=== PATIENT | male | born 1945 | race Caucasian/White ===

== ENCOUNTER 2023-10-18 09:51 | Inpatient (IN) | payer MEDICARE, SELFPAY ==
[2023-10-18] VITALS (30 sets, daily range): BP systolic 91–185; BP diastolic 46–164; PULSE 74–95; RESP 14–23; TEMP 36.3–36.9; O2SAT 92–100
--- NOTE | ~2023-10-18 | CT_ITS ---
EXAMINATION: CT cervical spine wo con DATE: 10/18/2023 11:55 INDICATION: Fall. TECHNIQUE: Computed tomography (CT) of the cervical spine was performed without intravenous contrast. Automated exposure control and iterative reconstruction technique were employed. Exam dose: 558.75 mGy-cm total exam DLP. COMPARISON: None FINDINGS: Normal alignment at the atlantoaxial joint space. C1 and C2 are normally aligned and the odontoid process is intact. Chronic concavity of the vertebral endplates of C2-3, C3-4, C4-5, C5-6, C6-7. Very prominent anterior spurring at C5-6. Very prominent hypertrophic degenerative change at the apophyseal joints throughout the cervical spin e. Mild is uncovertebral joint spurring in the mid and lower cervical spine, particularly at C4-5, C5 -6, especially on the left. No fracture or dislocation or locked facet or prevertebral soft tissue swelling. IMPRESSION: Prominent cervical spondylosis; no fracture or dislocation or locked facet Reviewed, dictated and finalized at [facility]. Reviewed, dictated and finalized at location [facility]. IMPRESSION: Prominent cervical spondylosis; no fracture or dislocation or lock ed facet
--- NOTE | ~2023-10-18 | XR_ITS ---
XR hip LT 2V w AP pelvis DATE: 10/18/2023 11:28 INDICATION: Fall. Left hip injury, pain TECHNIQUE: AP pelvis. AP and lateral views of left hip. COMPARISON: None FINDINGS: No pelvic fracture or bone destruction. Normal alignment at the pubic symphysis and sacroil iac joints. Bilateral hip osteoarthritis, moderately severe on the right, moderate on the left. No fracture, dislocation, avascular necrosis or bone destruction of the left hip. Prominent degenerative disc disease at L5-S1 IMPRESSION: Bilateral hip osteoarthritis, right greater than left No pelvic fracture No left hip fracture or dislocation Reviewed, dictated and finalized at [facility].
--- NOTE | ~2023-10-18 | CT_ITS ---
EXAMINATION: CT brain wo con DATE: 10/18/2023 11:54 INDICATION: Fall. TECHNIQUE: Computed tomography (CT) of the head was performed without intravenous contrast. The mA wa s adjusted according to patient size. Iterative reconstruction technique was employed. Exam dose: 60 5.33 mGy-cm total exam DLP. COMPARISON: None FINDINGS: No intracranial mass lesion or hemorrhage or cerebrovascular accident, midline shift or mas s effect is detected. Bilateral carotid siphon internal carotid artery calcifications. There is nonspecific diminished atte nuation of the cerebral white matter, which may be due to chronic small vessel ischemic changes. Mild ly prominent central and cortical cerebral and cerebellar volume loss. No subdural or epidural hematoma is detected. Minimal mucoperiosteal thickening of the right maxillary sinus, patchy soft tissue thickening in the ethmoid air cells and frontal sinuses. Minimal fluid levels in the sphenoid sinuses. The mastoid air cells are well-developed and aerated. No skull fracture or bone destruction is detected. IMPRESSION: No skull fracture or acute intracranial finding Cerebral atherosclerosis and chronic small vessel ischemic changes of the cerebral white matter Reviewed, dictated and finalized at [facility]. Reviewed, dictated and finalized at location [facility]. IMPRESSION: No skull fracture or acute intracranial finding Cerebral atherosclerosis and chronic small vessel ischemic changes of the cereb ral white matter
--- NOTE | ~2023-10-18 | XR_ITS ---
XR elbow RT min 3V DATE: 10/18/2023 11:28 INDICATION: Fall. Right elbow injury, pain TECHNIQUE: 4 views COMPARISON: None FINDINGS: Prominent dorsal olecranon spur. Posterior elbow soft tissue swelling which may be due to h ematoma or olecranon bursitis. No fracture or dislocation, periosteal reaction or bone destruction or joint effusion is evident. IMPRESSION: Posterior soft tissue swelling which may be due to hematoma or olecranon bursitis Prominent dorsal olecranon process spur No fracture, dislocation or joint effusion is detected Reviewed, dictated and finalized at location [facility]. IMPRESSION: Posterior soft tissue swelling which may be due to hematoma or olec ranon bursitis Prominent dorsal olecranon process spur No fracture, dislocation or joint effusion is detected
--- NOTE | ~2023-10-18 | XR_ITS ---
XR elbow LT min 3V DATE: 10/18/2023 11:28 INDICATION: Fall. Left elbow injury, pain TECHNIQUE: 4 views COMPARISON: None FINDINGS: Prominent dorsal olecranon process spur. No fracture or dislocation, periosteal reaction or bone destruction is detected. IMPRESSION: Prominent dorsal olecranon process spur No fracture or dislocation or joint effusion Reviewed, dictated and finalized at location [facility].
--- NOTE | ~2023-10-18 | XR_ITS ---
XR shoulder RT min 2V DATE: 10/18/2023 11:28 INDICATION: Fall. Right shoulder injury, pain TECHNIQUE: 4 views COMPARISON: None FINDINGS: There is osteopenia. Normal alignment at the acromioclavicular and glenohumeral joints. There is chronic rotator cuff atro phy on the right. No fracture, dislocation, periosteal reaction or bone destruction. IMPRESSION: Chronic rotator cuff atrophy of right shoulder No fracture or dislocation of right shoulder Reviewed, dictated and finalized at location A.
--- NOTE | ~2023-10-18 | CT_ITS ---
EXAMINATION: CT chst ab sheldon reyna w DATE: 10/18/2023 11:55 INDICATION: Unwitnessed fall. Patient on the floor for undetermined amount of time. TECHNIQUE: Computed tomography (CT) of the chest, abdomen, and pelvis, thoracic and lumbar spine was performed with 100 CC Omnipaque 350 intravenous contrast. Automated exposure control and iterative re construction technique were employed. Exam dose: 1742.76 mGy-cm total exam DLP. COMPARISON: None FINDINGS: CHEST CT: No thoracic aortic aneurysm or dissection. There is aortic, great vessels and coronary atheroscleroti c calcification. Prominent calcification in the region of the aortic valve. No hilar or mediastinal mass lesion or lymphadenopathy. Cardiomegaly. No pericardial or pleural effusion. 8.7 x 13.5 mm pulmonary density in the lateral aspect of the middle lobe with mild focal surrounding infiltrate. Follow-up CT imaging after 3 months is recommended. There is primarily peripheral mild infiltrate or atelectasis of both lower lobes and lingula. Small sliding hiatal hernia. ABDOMEN/PELVIS CT: No visceral space-occupying mass lesion or laceration of the liver, spleen, pancreas. A couple of sma ll pancreatic tail calcifications suggest chronic pancreatitis. No pancreatic mass lesion or pancreat ic ductal dilatation. Cholelithiasis. No gallbladder wall thickening or pericholecystic fluid or fat stranding. No bile anna t dilatation. Normal morphology of the adrenal glands. Several right renal cysts, the largest approximately 4.2 cm. Indeterminate 8 mm hypoenhancing lesion of the lateral aspect of the mid to lower left kidney with at tenuation of approximately 36 Hounsfield units. Approximately 3 mm nonobstructing lower pole left renal calculus. No other urinary tract calculus or hydroureteronephrosis is detected. Mild prostate enlargement. The urinary bladder is unremarkable. Normal appendix. No bowel obstruction, bowel wall thickening, pneumatosis or intraperitoneal free air . Degenerative disease of the lower cervical spine. 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 Severe degenerative disc disease at L5-S1. No fracture or dislocation of the lower cervical, thoracic or lumbar spine is evident. IMPRESSION: Cardiomegaly 8.7 x 13.5 mm lateral middle lobe pulmonary opacity with mild surrounding focal infiltrate; short-ter m CT follow-up in 3 months is recommended. Primary the peripheral mild infiltrate or atelectasis of both lower lobes and lingula No pneumothorax or pleural effusion Small sliding hiatal hernia No abdominal visceral laceration or space-occupying mass lesion Cholelithiasis Several right renal cysts, measuring up to 4.2 cm Indeterminate 8 mm hypoenhancing lesion in the lateral mid to lower left kidney with attenuation of 3 6 Hounsfield units 3 mm nonobstructing lower pole left renal calculus Normal appendix Mild prostate enlargement No thoracic or lumbar spine fracture is detected Severe degenerative disease at L5-S1 Diffuse idiopathic skeletal hyperostosis of the thoracic spine Reviewed, dictated and finalized at [facility]. Reviewed, dictated and finalized at location A. IMPRESSION: Cardiomegaly 8.7 x 13.5 mm lateral middle lobe pulmonary opacity with mild surrounding focal infiltrate; short-term CT follow-up in 3 months is recommended. Primary the peripheral mild infiltrate or atelectasis of both lower lobes and l ingula No pneumothorax or pleural effusion Small sliding hiatal hernia No abdominal visceral laceration or space-occupying mass lesion Cholelithiasis Several right renal cysts, measuring up to 4.2 cm Indeterminate 8 mm hypoenhancing lesion in the lateral mid to lower left kidney with attenuation of 36 Hounsfield units 3 mm nonobstructing lower
--- NOTE | 2023-10-18 10:02 | ECG_ITS ---
[facility] [address] Test Date: 2023-10-18 Pat Name: Ken Donovan Department: Room: Gender: M Technical Training Coordinator: : 1945 Requested By: Kamari Christianson Order Number: [id number] Sven MD: Nik Trevizo M.D. Measurements Intervals [place] Rate: 84 P: 64 FL: 187 QRS: -48 QRSD: 75 T: 12 QT: 356 QTc: 421 Interpretive Statements SINUS RHYTHM LEFT ANTERIOR SUPERIOR HEMIBLOCK ABNORMAL ECG No previous ECG available for comparison Electronically Signed On 10-19-2023 07:42:34 CDT by Nik Trevizo M.D.
--- NOTE | 2023-10-18 10:05 | ED.FALL ---
HPI - Fall General Chief Complaint: Fall Stated Complaint: fall Time Seen by Provider: 10/18/23 10:00 History of Present Illness HPI Narrative: Patient is a 77 year old male with history of sleep apnea, RA, HLD, DM, HTN here after a fall. Patient states that he was making chili, he believes this was on Friday evening and he tripped over camp on the floor and fell down to the ground and hit his head. He states he thinks he was on the ground since that time on Friday. He notes that he was unable to get off of the ground because it was wet. He has not had anything to eat or drink since he fell which he assumes was on Friday. He lives alone and has family that lives out of state. They were unable to get a hold of him and called for a welfare check and he was found down on the ground by police and EMS. He was reportedly covered in his own feces at home. He notes he has never been hospitalized and describes himself as quite healthy. He currently denies any pain. Related Data Home Medications Medication Instructions Recorded Confirmed folic acid 1 mg tablet 1 mg PO DAILY 09/15/19 10/18/23 methotrexate sodium 2.5 mg tablet 2.5 mg PO WEEKLY 09/15/19 10/18/23 glipizide 10 mg tablet 10 mg PO BID 10/18/23 10/18/23 simvastatin 40 mg tablet 40 mg PO DAILY 10/18/23 10/18/23 Allergies Allergy/AdvReac Type Severity Reaction Status Date / Time No Known Allergies Allergy Verified 10/18/23 18:02 Review of Systems Review of Systems: All systems reviewed & are unremarkable except as noted in HPI and below PMFSH Past Medical History Medical History Arthritis, rheumatoid Combined hyperlipidemia Diabetes type 2, controlled Hypertension REGAN (obstructive sleep apnea) Skin cancer, basal cell Family History Family History Father Family history of malignant neoplasm, Onset Age: 61 Mother Family history of Parkinson's disease, Onset Age: 88 Social History Social History Smoking status: Never smoker Second hand tobacco smoke exposure: No Alcohol intake: never Substance use: never Do You Feel Safe in your Home?: Yes Lack of Transportation: No Lack of Food: Never True Current Housing: I Have Housing Concerned About Future Housing: No Difficulty Paying Gas/Electric Bills: No Difficulty Paying for Meds: No Currently Unemployed: No Education: Decline to Answer Difficulty w/ Childcare or Family Care: No Spiritual care concerns: No Exam Narrative: GENERAL: Well-appearing, well-nourished, and in no acute distress. HEAD: Normocephalic, atraumatic. EYES: PERRLA and EOMI. ENT: Nares clear. Mucous membranes dry NECK: Supple. CHEST: Clear to auscultation. No respiratory distress. No chest wall tenderness. HEART: Regular rate and rhythm. Normal peripheral pulses. ABDOMEN: Soft, nontender, nondistended. EXTREMITIES: Bilateral hips non-tender with normal ROM. No midline thoracic or lumbar tenderness. Bruising and erythema present over the right scapula with minimal underlying tenderness. Erythema present over the left elbow with normal ROM and no tenderness. 2x2 cm of ulceration present to posterior right elbow consistent with pressure ulcer, normal ROM. Normal distal sensation, strength and perfusion. SKIN: Warm, dry, no rash. Erythema present diffusely over BL gluteal region without skin breakdown. NEURO: No focal deficits. Alert and oriented x3. PSYCH: Normal mood and affect. Course Course Emergency Course: Chart review performed. Patient here after being found on the floor during wellness check. Triage vitals normal. Last PCP note in our system from 2019 reviewed. History of REGAN, HLD, HTN, T2DM, RA taking methotrexate at that time. Patient seen evaluated, nontoxic appearing. He is awake, alert, oriented.
[2023-10-18] MEDS: LACTATED RINGERS 1,000 ML 999 ML IV CONT ×2 (10:24→11:09)
[2023-10-18 10:32] LABS: Basophils Absolute Auto 0.1 K/mm3 (0.0-0.1); Basophils Percent Auto 0.5 % (0.2-1.2); Eosinophils Percent Auto 0.1 % (0-4.4); Hematocrit 49.6 % (42.0-52.0); Hemoglobin 16.4 g/dL (14.0-18.0); Immature Granulocyte Absolute 0.11 K/mm3 (0.00-0.031); Immature Granulocyte Percent A 0.7 % (0-0.5); Lymphocytes Absolute Auto 1.67 K/mm3 (0.9-3.2); Lymphocytes Percent Auto 11.2 % (18.3-44.2); Mean Corpuscular HGB Conc 33.1 g/dl (32-36); Mean Corpuscular Hemoglobin 29.3 pg (26-34); Mean Corpuscular Volume 88.7 fl (80-100); Mean Platelet Volume 11.1 fl (7.4-10.4); Monocytes Absolute Auto 1.4 K/mm3 (0.1-0.6); Monocytes Percent Auto 9.2 % (2.6-8.5); Neutrophils Absolute Auto 11.7 K/mm3 (1.3-6.7); Neutrophils Percent Auto 78.3 % (45.5-73.1); Platelet Count Result 239 k/mm3 (150-375); Red Blood Count 5.59 M/mm3 (4.6-6.20); Red Cell Distribution Width 13.2 % (11.5-14.5); White Blood Count 14.9 K/mm3 (4.5-10.0)
[2023-10-18 10:48] LABS: INR 1.1; Prothrombin Time 14.7 Seconds (11.1-14.7)
[2023-10-18 10:49] LABS: Partial Thromboplastin Time 30.4 Seconds (22.3-36.8)
[2023-10-18 10:56] LABS: Troponin I 0.025 ng/mL (0.000-0.034)
[2023-10-18 11:03] LABS: Alanine Aminotransferase 38 U/L (6-50); Albumin Level 4.4 g/dL (3.5-5.1); Alkaline Phosphatase 77 U/L (38-126); Anion Gap 8 mmol/L (4-12); Aspartate Amino Transferase 88 U/L (17-59); Bilirubin,Total 1.9 mg/dL (0.2-1.3); Blood Urea Nitrogen 29 mg/dL (9-20); CRP 14.2 mg/dL (<1.0); Calcium 9.7 mg/dL (8.4-10.2); Carbon Dioxide 27 mmol/L (22-30); Chloride 100 mmol/L (98-107); Creatine Kinase 2163 U/L (55-170); Estimated CRCL calculation 99 ml/min; Estimated Glomerular Filt Rate > 60; Glucose 305 mg/dL (65-110); Magnesium 2.1 mg/dL (1.6-2.3); Potassium 4.5 mmol/L (3.4-5.0); Sodium 135 mmol/L (137-145)
--- NOTE | 2023-10-18 12:25 | PC.NURSE ---
Pt not able to urinate, tried many times.
[2023-10-18 12:34] LABS: Appearance Urine Clear (Clear); Bacteria Urine None Seen /hpf; Bilirubin Urine Negative (Negative); Blood Urine 2+ (Negative); Color Urine Dark Yellow (Yellow); Glucose Urine UA 3+ mg/dL (Negative); Ketones Urine 1+ mg/dL (Negative); Leukocyte Esterase Ur Negative LEU/UL (Negative); Nitrate Urine Negative (Negative); Protein Urine 1+ mg/dL (Negative); RBC Urine 51-100 /hpf (0-2); Squamous Epithelial Cell Urine None Seen /hpf (Few); WBC Urine 0-5 /hpf (0-3); pH Urine 5.5 (5.0-9.0)
[2023-10-18 12:37] LABS: Add Urine Microscopic? YES; Specific Grav Ur 1.055 (1.001-1.035)
[2023-10-18 13:28] LABS: Reflex Lactic Acid Yes or No Add Lactic
[2023-10-18 14:19] LABS: Lactic Acid 2.2 mmol/L (0.7-2.0)
[2023-10-18] MEDS: DOXYCYCLINE 100 MG/NS 100 ML 100 MG/100 ML BAG IVPB (14:30)
[2023-10-18] MEDS: TETANUS,DIPHTHERIA,AC PERTUSSIS ADULT (0.5 ML) BOOSTRIX IM (14:35)
--- NOTE | 2023-10-18 15:01 | PM.IMHP ---
H&P: HPI History of Present Illness Date/Time: 10/18/23 15:01 Chief Complaint: Fall, Wellness Check Narrative: 77 y/o M presents here for further evaluation after ground level fall with PMH of HTN, DM, HLD, rheumatoid arthritis, and sleep apnea. The patient presents here via EMS from home for further evaluation after ground level fall. Patient's sister who lives in [place] typically speaks with the patient daily, last spoke with the patient on Friday, and had not heard from him since. She called a wellness check and upon PD arrival, patient was found on the floor. He is unsure when he fell, but was unable to get up due to the floor being slick. States he was about to make chili Friday evening and this is the last thing he remembers doing before the fall, remembers tripping over a case of food on the floor. Believes it wither tripped him or he lost his balance avoiding it and fell to the ground. Endorsing hitting his head, reports the strike was mild and more like a graze. Denies LOC. Reports 1 fall (the one that occurred Fri) in the last 3 months and does not use an assistive device. Patient arrived covered in dried urine and feces. Denies any current ETOH use. No nausea or vomiting during down time on floor, did have N/V earlier that day. Believes he developed food poisoning after eating out at lunch after attending a . Denies choking or difficulty breathing after the N/V. No prior hx of smoking. Patient used to work in sales, [place]. Initial VS at presentation: 98.4? F, HR 86, RR 17, 138/81, and 100% on RA. ED workup showed: WBC 14.9, sodium 135, creatinine 0.7 and normal GFR, glucose 305, lactic 3.0, total bilirubin 1.9, AST 88, CK 2163, initial troponin 0.025, and CRP 14.2. UA not consistent with UTI. Trauma workup largely unremarkable. CT did show a lateral middle lobe pulmonary opacity with surrounding with focal infiltrate. Review of Systems Review of Systems: All systems reviewed & are unremarkable except as noted in HPI and below PMFSH Past Medical History Medical History Arthritis, rheumatoid Combined hyperlipidemia Diabetes type 2, controlled Hypertension REGAN (obstructive sleep apnea) Skin cancer, basal cell Family History Family History Father Family history of malignant neoplasm, Onset Age: 61 Mother Family history of Parkinson's disease, Onset Age: 88 Social History Social History Smoking status: Never smoker Second hand tobacco smoke exposure: No Alcohol intake: never Substance use: never Do You Feel Safe in your Home?: Yes Lack of Transportation: No Lack of Food: Never True Current Housing: I Have Housing Concerned About Future Housing: No Difficulty Paying Gas/Electric Bills: No Difficulty Paying for Meds: No Currently Unemployed: No Education: Decline to Answer Difficulty w/ Childcare or Family Care: No Spiritual care concerns: No Meds Home Medications and Allergies Home Medications Medication Instructions Recorded Confirmed Type losartan 25 mg tablet 50 mg PO DAILY #120 tabs 04/14/19 10/18/23 Rx folic acid 1 mg tablet 1 mg PO DAILY 09/15/19 10/18/23 History methotrexate sodium 2.5 mg tablet 2.5 mg PO WEEKLY 09/15/19 10/18/23 History glipizide 10 mg tablet 10 mg PO BID 10/18/23 10/18/23 History simvastatin 40 mg tablet 40 mg PO DAILY 10/18/23 10/18/23 History Allergies Allergy/AdvReac Type Severity Reaction Status Date / Time No Known Allergies Allergy Verified 10/18/23 18:02 Vital Signs Vital Signs - 24 hr 10/18/23 09:51 10/18/23 10:04 10/18/23 10:15 Temperature 98.4 F Pulse Rate 86 88 89 Respiratory Rate 17 19 20 Blood Pressure 138/81 154/79 H Pulse Oximetry 100 98 99 Oxygen Delivery Room Air 06
--- NOTE | 2023-10-18 16:07 | PC.NURSE ---
This patient, Ken Donovan, was admitted to 3 [facility] Surg Room 317-01 at 1545. Patient/family oriented to hospital policies and general routines including ID bracelet, bed and alarms, visiting hours, pain management, procedures, bathroom and other care routines, personal items, smoking policy, room service/diet, and visiting hours. Information on how to activate the Rapid Response Team has been discussed. Patient/Family are encouraged to report perceived risks to care and to ask questions if they do not understand what they are told or what they should do.
[2023-10-18] MEDS: LACTATED RINGERS 1,000 ML 100 ML IV CONT (16:16)
--- NOTE | 2023-10-18 16:19 | PCRCNOTE ---
Received order for Bipap/Cpap with home settings. Spoke with Pt. whom refused offer to use one of our machines. R.N. at bedside and states Pt. has a home unit but does not use it. No unit left in the room at this time.
[2023-10-18 16:23] LABS: Glucose Point of Care 301 mg/dl (65-105)
[2023-10-18] MEDS: INSULIN ASPART (*BKC) 100 UNITS/ML SUB-Q (16:40)
[2023-10-18 20:11] LABS: Glucose Point of Care 252 mg/dl (65-105)
[2023-10-19] MEDS: LACTATED RINGERS 1,000 ML 100 ML IV CONT ×2 (02:35→17:26)
[2023-10-19 04:41] VITALS: BP 137/63; PULSE 77; RESP 16; TEMP 36.6; O2SAT 98
[2023-10-19 06:17] LABS: Basophils Absolute Auto 0.1 K/mm3 (0.0-0.1); Basophils Percent Auto 0.7 % (0.2-1.2); Eosinophils Absolute Auto 0.2 K/mm3 (0-0.3); Eosinophils Percent Auto 1.9 % (0-4.4); Hemoglobin 13.4 g/dL (14.0-18.0); Immature Granulocyte Absolute 0.06 K/mm3 (0.00-0.031); Immature Granulocyte Percent A 0.7 % (0-0.5); Lymphocytes Absolute Auto 1.94 K/mm3 (0.9-3.2); Lymphocytes Percent Auto 21.5 % (18.3-44.2); Mean Corpuscular HGB Conc 32.7 g/dl (32-36); Mean Corpuscular Hemoglobin 29.4 pg (26-34); Mean Corpuscular Volume 89.9 fl (80-100); Mean Platelet Volume 10.7 fl (7.4-10.4); Monocytes Percent Auto 10.6 % (2.6-8.5); Neutrophils Absolute Auto 5.8 K/mm3 (1.3-6.7); Neutrophils Percent Auto 64.6 % (45.5-73.1); Platelet Count Result 175 k/mm3 (150-375); Red Blood Count 4.56 M/mm3 (4.6-6.20); Red Cell Distribution Width 13.2 % (11.5-14.5)
[2023-10-19 06:41] LABS: Alanine Aminotransferase 34 U/L (6-50); Albumin Level 3.2 g/dL (3.5-5.1); Alkaline Phosphatase 62 U/L (38-126); Anion Gap 4 mmol/L (4-12); Aspartate Amino Transferase 74 U/L (17-59); Bilirubin,Total 1.2 mg/dL (0.2-1.3); Blood Urea Nitrogen 22 mg/dL (9-20); Calcium 8.8 mg/dL (8.4-10.2); Carbon Dioxide 26 mmol/L (22-30); Chloride 103 mmol/L (98-107); Estimated CRCL calculation 99 ml/min; Estimated Glomerular Filt Rate > 60; Glucose 209 mg/dL (65-110); Potassium 3.8 mmol/L (3.4-5.0); Sodium 133 mmol/L (137-145)
[2023-10-19 07:00] LABS: Creatine Kinase 1256 U/L (55-170)
[2023-10-19 07:58] LABS: Glucose Point of Care 198 mg/dl (65-105)
[2023-10-19] MEDS: SIMVASTATIN 20 MG TABLET 40 MG PO (08:55)
[2023-10-19] MEDS: FOLIC ACID 1 MG TABLET PO (08:57)
[2023-10-19] MEDS: LOSARTAN POTASSIUM 25 MG TABLET 50 MG PO (08:57)
[2023-10-19] MEDS: glipiZIDE 5 MG TABLET 10 MG PO ×2 (08:57→16:41)
[2023-10-19 09:42] LABS: Hemoglobin A1C 8.6 % (<5.7)
--- NOTE | 2023-10-19 11:08 | PM.IMPN ---
Progress Note: A&P Assessment and Plan (1) Ground-level fall: Code(s): W18.30XA - Fall on same level, unspecified, initial encounter Status: Acute Assessment and Plan: - 1 fall in the last 3 months - fall precautions - trauma workup XR shoulder (R): no fracture or dislocation, chronic rotator cuff atrophy XR elbow (R): Posterior soft tissue swelling, prominent dorsal olecranon process spur, no fracture/dislocation/effusion XR elbow (L): Prominent dorsal olecranon process spur, no fracture/dislocation/effusion XR hip/pelvis: Bilateral hip osteoarthritis, no fracture, no dislocation CT head: Chronic findings, no fracture or acute intracranial bleed CT C-spine: Prominent cervical spondylosis, no fracture or dislocation CT chest/abd/pelvis: Cardiomegaly 8.7 x 13.5 mm lateral middle lobe pulmonary opacity with mild surrounding focal infiltrate; rec CT follow-up in 3 months. Primary the peripheral mild infiltrate or atelectasis of both lower lobes and lingula No pneumothorax or pleural effusion Small sliding hiatal hernia No abdominal visceral laceration or space-occupying mass lesion Cholelithiasis Several right renal cysts, measuring up to 4.2 cm Indeterminate 8 mm hypoenhancing lesion in the lateral mid to lower left kidney with attenuation of 36 Hounsfield units 3 mm nonobstructing lower pole left renal calculus Normal appendix Mild prostate enlargement No thoracic or lumbar spine fracture is detected Severe degenerative disease at L5-S1 Diffuse idiopathic skeletal hyperostosis of the thoracic spine - PT/OT eval and treat - patient feels safe at home and has had no prior issues with falls/mobility (2) Pneumonia: Qualifiers: Laterality: bilateral Lung location: lower lobe of lung Pneumonia type: due to unspecified organism Qualified Code(s): J18.9 - Pneumonia, unspecified organism Code(s): J18.9 - Pneumonia, unspecified organism Status: Acute Assessment and Plan: - CT chest/abd/pelvis: 8.7 x 13.5 mm pulmonary density in the lateral aspect of the middle lobe with mild focal surrounding infiltrate. Follow-up CT imaging after 3 months is recommended. There is primarily peripheral mild infiltrate or atelectasis of both lower lobes and lingula - started on CAP tx: ceftriaxone and doxycycline on 10/17 - sputum culture - denied N/V during period spent on floor - no supplemental O2 requirement - patient informed of CT findings and need for follow-up scan in 3 months, remind at discharge (3) Rhabdomyolysis: Qualifiers: Rhabdomyolysis type: non-traumatic Qualified Code(s): M62.82 - Rhabdomyolysis Code(s): M62.82 - Rhabdomyolysis Status: Acute Assessment and Plan: - CK 2163 - trend CK and renal function - IV fluids: 2L LR, continue as 100 mL/hr. CK down to 1200. will lower ivf - monitor I&Os - suspect elevation due to prolonged down time on the floor after GLF (4) Diabetes type 2, controlled: Qualifiers: Diabetes mellitus terminal gauger supervisor insulin use: without terminal gauger supervisor use Diabetes mellitus complication status: without complication Qualified Code(s): E11.9 - Type 2 diabetes mellitus without complications Code(s): E11.9 - Type 2 diabetes mellitus without complications Status: Chronic Assessment and Plan: - hypoglycemia protocol - POC blood glucose ACHS - home medication: Continue glipizide - correct regimen ordered - low dose TIDWM and HS - A1C o8.6 (5) Hypertension: Qualifiers: Hypertension type: primary hypertension Qualified Code(s): I10 - Essential (primary) hypertension Code(s): I10 - Essential (primary) hypertension Status: Chronic Assessment and Plan: - chronic, currently 139/56 - continue home medications: Losartan 50 mg daily - monitor (6) Sleep apnea: Qualifiers: Sleep apnea type: obstructive Qualified Code(s)
[2023-10-19 11:26] LABS: Glucose Point of Care 216 mg/dl (65-105)
[2023-10-19] MEDS: INSULIN ASPART (*BKC) 100 UNITS/ML SUB-Q (11:56)
[2023-10-19 14:00] VITALS: BP 142/54; PULSE 84; RESP 16; TEMP 36.5; O2SAT 99
[2023-10-19 16:30] LABS: Glucose Point of Care 119 mg/dl (65-105)
[2023-10-19 19:58] VITALS: BP 140/69; PULSE 91; RESP 18; TEMP 37.1; O2SAT 97
[2023-10-19 20:12] LABS: Glucose Point of Care 193 mg/dl (65-105)
[2023-10-20 04:35] VITALS: BP 163/75; PULSE 76; RESP 16; TEMP 36.6; O2SAT 99
[2023-10-20 06:37] LABS: Basophils Absolute Auto 0.1 K/mm3 (0.0-0.1); Basophils Percent Auto 0.8 % (0.2-1.2); Eosinophils Absolute Auto 0.1 K/mm3 (0-0.3); Eosinophils Percent Auto 2.3 % (0-4.4); Hematocrit 40.9 % (42.0-52.0); Hemoglobin 13.3 g/dL (14.0-18.0); Immature Granulocyte Absolute 0.07 K/mm3 (0.00-0.031); Immature Granulocyte Percent A 1.2 % (0-0.5); Lymphocytes Absolute Auto 1.39 K/mm3 (0.9-3.2); Lymphocytes Percent Auto 23.2 % (18.3-44.2); Mean Corpuscular HGB Conc 32.5 g/dl (32-36); Mean Corpuscular Hemoglobin 29.3 pg (26-34); Mean Corpuscular Volume 90.1 fl (80-100); Mean Platelet Volume 10.8 fl (7.4-10.4); Monocytes Absolute Auto 0.7 K/mm3 (0.1-0.6); Monocytes Percent Auto 11.3 % (2.6-8.5); Neutrophils Absolute Auto 3.7 K/mm3 (1.3-6.7); Neutrophils Percent Auto 61.2 % (45.5-73.1); Platelet Count Result 174 k/mm3 (150-375); Red Blood Count 4.54 M/mm3 (4.6-6.20); Red Cell Distribution Width 13.1 % (11.5-14.5)
[2023-10-20 06:56] LABS: Alanine Aminotransferase 37 U/L (6-50); Albumin Level 3.2 g/dL (3.5-5.1); Alkaline Phosphatase 63 U/L (38-126); Anion Gap 4 mmol/L (4-12); Aspartate Amino Transferase 75 U/L (17-59); Bilirubin,Total 0.9 mg/dL (0.2-1.3); Blood Urea Nitrogen 14 mg/dL (9-20); Calcium 8.8 mg/dL (8.4-10.2); Carbon Dioxide 26 mmol/L (22-30); Chloride 105 mmol/L (98-107); Creatine Kinase 1028 U/L (55-170); Estimated CRCL calculation 87 ml/min; Estimated Glomerular Filt Rate > 60; Glucose 196 mg/dL (65-110); Magnesium 1.9 mg/dL (1.6-2.3); Potassium 3.8 mmol/L (3.4-5.0); Sodium 135 mmol/L (137-145)
[2023-10-20 08:00] VITALS: PULSE 76; RESP 16; O2SAT 99
[2023-10-20 08:11] LABS: Glucose Point of Care 190 mg/dl (65-105)
[2023-10-20] MEDS: LACTATED RINGERS 1,000 ML 100 ML IV CONT (09:30)
[2023-10-20] MEDS: SIMVASTATIN 20 MG TABLET 40 MG PO (09:31)
[2023-10-20] MEDS: LOSARTAN POTASSIUM 25 MG TABLET 50 MG PO (09:31)
[2023-10-20] MEDS: FOLIC ACID 1 MG TABLET PO (09:31)
[2023-10-20] MEDS: glipiZIDE 5 MG TABLET 10 MG PO ×2 (09:31→17:42)
[2023-10-20] MEDS: DOXYCYCLINE 100 MG/NS 100 ML 100 MG/100 ML BAG IVPB ×3 (09:32→20:42)
[2023-10-20 11:43] LABS: Glucose Point of Care 183 mg/dl (65-105)
--- NOTE | 2023-10-20 12:00 | PM.IMPN ---
Progress Note: A&P Assessment and Plan (1) Ground-level fall: Code(s): W18.30XA - Fall on same level, unspecified, initial encounter Status: Acute Assessment and Plan: - 1 fall in the last 3 months - fall precautions - trauma workup XR shoulder (R): no fracture or dislocation, chronic rotator cuff atrophy XR elbow (R): Posterior soft tissue swelling, prominent dorsal olecranon process spur, no fracture/dislocation/effusion XR elbow (L): Prominent dorsal olecranon process spur, no fracture/dislocation/effusion XR hip/pelvis: Bilateral hip osteoarthritis, no fracture, no dislocation CT head: Chronic findings, no fracture or acute intracranial bleed CT C-spine: Prominent cervical spondylosis, no fracture or dislocation CT chest/abd/pelvis: Cardiomegaly 8.7 x 13.5 mm lateral middle lobe pulmonary opacity with mild surrounding focal infiltrate; rec CT follow-up in 3 months. 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 Follow-up CT imaging after 3 months is recommended. There is primarily peripheral mild infiltrate or atelectasis of both lower lobes and lingula - started on CAP tx: ceftriaxone and doxycycline on 10/17 - sputum culture - denied N/V during period spent on floor - no supplemental O2 requirement - patient informed of CT findings and need for follow-up scan in 3 months, remind at discharge (3) Rhabdomyolysis: Qualifiers: Rhabdomyolysis type: non-traumatic Qualified Code(s): M62.82 - Rhabdomyolysis Code(s): M62.82 - Rhabdomyolysis Status: Acute Assessment and Plan: - CK 2163 - trend CK and renal function - IV fluids: 2L LR, continue as 100 mL/hr. CK down to 1200. Lowered IV fluid if adequate oral intake. IV fluids today. - monitor I&Os - suspect elevation due to prolonged down time on the floor after GLF (4) Diabetes type 2, controlled: Qualifiers: Diabetes mellitus intermediate card tender insulin use: without intermediate card tender use Diabetes mellitus complication status: without complication Qualified Code(s): E11.9 - Type 2 diabetes mellitus without complications Code(s): E11.9 - Type 2 diabetes mellitus without complications Status: Chronic Assessment and Plan: - hypoglycemia protocol - POC blood glucose ACHS - home medication: Continue glipizide - correct regimen ordered - low dose TIDWM and HS - A1C o8.6 (5) Hypertension: Qualifiers: Hypertension type: primary hypertension Qualified Code(s): I10 - Essential (primary) hypertension Code(s): I10 - Essential (primary) hypertension Status: Chronic Assessment and Plan: - chronic, currently 139/56 - continue home medications: Losartan 50 mg daily - monitor (6) Sleep apnea:
[2023-10-20 14:00] VITALS: BP 130/82; PULSE 85; RESP 20; TEMP 36.4; O2SAT 100
[2023-10-20 16:38] LABS: Glucose Point of Care 186 mg/dl (65-105)
[2023-10-20 20:28] LABS: Glucose Point of Care 230 mg/dl (65-105)
[2023-10-20 20:40] VITALS: BP 148/62; PULSE 85; RESP 18; TEMP 36.4; O2SAT 98
[2023-10-21 04:51] VITALS: BP 127/59; PULSE 82; RESP 18; TEMP 36.6; O2SAT 96
[2023-10-21 06:52] LABS: Basophils Absolute Auto 0.1 K/mm3 (0.0-0.1); Eosinophils Absolute Auto 0.2 K/mm3 (0-0.3); Eosinophils Percent Auto 2.4 % (0-4.4); Hematocrit 43.9 % (42.0-52.0); Hemoglobin 14.3 g/dL (14.0-18.0); Immature Granulocyte Absolute 0.11 K/mm3 (0.00-0.031); Immature Granulocyte Percent A 1.5 % (0-0.5); Lymphocytes Absolute Auto 1.67 K/mm3 (0.9-3.2); Lymphocytes Percent Auto 23.5 % (18.3-44.2); Mean Corpuscular HGB Conc 32.6 g/dl (32-36); Mean Corpuscular Hemoglobin 29.1 pg (26-34); Mean Corpuscular Volume 89.4 fl (80-100); Mean Platelet Volume 10.3 fl (7.4-10.4); Monocytes Absolute Auto 0.8 K/mm3 (0.1-0.6); Monocytes Percent Auto 11.8 % (2.6-8.5); Neutrophils Absolute Auto 4.3 K/mm3 (1.3-6.7); Neutrophils Percent Auto 59.8 % (45.5-73.1); Platelet Count Result 203 k/mm3 (150-375); Red Blood Count 4.91 M/mm3 (4.6-6.20); Red Cell Distribution Width 12.9 % (11.5-14.5); White Blood Count 7.1 K/mm3 (4.5-10.0)
[2023-10-21 07:10] LABS: Alanine Aminotransferase 43 U/L (6-50); Albumin Level 3.7 g/dL (3.5-5.1); Alkaline Phosphatase 65 U/L (38-126); Anion Gap 4 mmol/L (4-12); Aspartate Amino Transferase 73 U/L (17-59); Bilirubin,Total 0.9 mg/dL (0.2-1.3); Blood Urea Nitrogen 13 mg/dL (9-20); Calcium 9.2 mg/dL (8.4-10.2); Carbon Dioxide 28 mmol/L (22-30); Chloride 104 mmol/L (98-107); Estimated CRCL calculation 99 ml/min; Estimated Glomerular Filt Rate > 60; Glucose 201 mg/dL (65-110); Magnesium 1.9 mg/dL (1.6-2.3); Potassium 3.8 mmol/L (3.4-5.0); Sodium 136 mmol/L (137-145)
[2023-10-21 07:43] LABS: Glucose Point of Care 216 mg/dl (65-105)
[2023-10-21 08:13] VITALS: O2SAT 99
[2023-10-21] MEDS: INSULIN ASPART (*BKC) 100 UNITS/ML SUB-Q ×2 (08:17→11:58)
[2023-10-21] MEDS: FOLIC ACID 1 MG TABLET PO (08:17)
[2023-10-21] MEDS: LOSARTAN POTASSIUM 25 MG TABLET 50 MG PO (08:17)
[2023-10-21] MEDS: glipiZIDE 5 MG TABLET 10 MG PO ×2 (08:17→16:29)
[2023-10-21] MEDS: SIMVASTATIN 20 MG TABLET 40 MG PO (08:17)
--- NOTE | 2023-10-21 08:51 | PM.DS ---
DS: Admitting Diagnosis Discharge Date 10/21/2023 Admitting Diagnosis fall DS: Discharge Diagnosis Discharge Diagnosis (1) Ground-level fall: Code(s): W18.30XA - Fall on same level, unspecified, initial encounter Status: Acute (2) Pneumonia: Qualifiers: Laterality: bilateral Lung location: lower lobe of lung Pneumonia type: due to unspecified organism Qualified Code(s): J18.9 - Pneumonia, unspecified organism Code(s): J18.9 - Pneumonia, unspecified organism Status: Acute (3) Rhabdomyolysis: Qualifiers: Rhabdomyolysis type: non-traumatic Qualified Code(s): M62.82 - Rhabdomyolysis Code(s): M62.82 - Rhabdomyolysis Status: Acute (4) Diabetes type 2, controlled: Qualifiers: 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 superintendent marine oil terminal use Diabetes mellitus complication status: without complication Qualified Code(s): E11.9 - Type 2 diabetes mellitus without complications Code(s): E11.9 - Type 2 diabetes mellitus without complications Status: Chronic (5) Hypertension: Qualifiers: Hypertension type: primary hypertension Qualified Code(s): I10 - Essential (primary) hypertension Code(s): I10 - Essential (primary) hypertension Status: Chronic (6) Sleep apnea: Qualifiers: Sleep apnea type: obstructive Qualified Code(s): G47.33 - Obstructive sleep apnea (adult) (pediatric) Code(s): G47.30 - Sleep apnea, unspecified Status: Chronic DS: Summary Hospital Course Hospital Course: Patient here for further evaluation after ground level fall at home. Wellness check called by sister. Believed to fallen on Friday evening and was unable to get up due to fluid being slippery. Trauma workup: XR shoulder (R): no fracture or dislocation, chronic rotator cuff atrophy XR elbow (R): Posterior soft tissue swelling, prominent dorsal olecranon process spur, no fracture/dislocation/effusion XR elbow (L): Prominent dorsal olecranon process spur, no fracture/dislocation/effusion XR hip/pelvis: Bilateral hip osteoarthritis, no fracture, no dislocation CT head: Chronic findings, no fracture or acute intracranial bleed CT C-spine: Prominent cervical spondylosis, no fracture or dislocation CT chest/abd/pelvis: Cardiomegaly 8.7 x 13.5 mm lateral middle lobe pulmonary opacity with mild surrounding focal infiltrate; rec CT follow-up in 3 months. 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 Pneumonia:Workup revealed pneumonia on CT, started on ceftriaxone and doxycycline. Sputum culture ordered if obtainable. clinically improved and stable will change antibiotics to oral at discharge.Will need a follow-up CT in 3 months to reevaluate lungs after d/c. Hypertension medication Sleep apnea: CPAP Diet: diabetic GI Prophylaxis: not currently indicated DVT Prophylaxis: SCDs Lines: peripheral Code Status: full code, MIKEY Whipple Time Spent with Patient Time attestation: Total time spent providing and/or coordinating discharge services: 35 minutes Exam Narrative: GENERAL: Well-appearing, well-nourished, and in no acute distress. HEAD: Normocephalic, atraumatic. EYES: PERRLA and EOMI. ENT: Nares clear. Mucous m
[2023-10-21 11:33] LABS: Glucose Point of Care 216 mg/dl (65-105)
[2023-10-21] MEDS: DOXYCYCLINE HYCLATE 100 MG TABLET PO ×2 (11:58→20:13)
[2023-10-21 12:06] LABS: Creatine Kinase 566 U/L (55-170)
[2023-10-21 14:00] VITALS: BP 115/63; PULSE 89; RESP 18; TEMP 36.4; O2SAT 98
--- NOTE | 2023-10-21 15:08 | PM.IMPN ---
Progress Note: A&P Assessment and Plan (1) Ground-level fall: Code(s): W18.30XA - Fall on same level, unspecified, initial encounter Status: Acute Assessment and Plan: - 1 fall in the last 3 months - fall precautions - trauma workup XR shoulder (R): no fracture or dislocation, chronic rotator cuff atrophy XR elbow (R): Posterior soft tissue swelling, prominent dorsal olecranon process spur, no fracture/dislocation/effusion XR elbow (L): Prominent dorsal olecranon process spur, no fracture/dislocation/effusion XR hip/pelvis: Bilateral hip osteoarthritis, no fracture, no dislocation CT head: Chronic findings, no fracture or acute intracranial bleed CT C-spine: Prominent cervical spondylosis, no fracture or dislocation CT chest/abd/pelvis: Cardiomegaly 8.7 x 13.5 mm lateral middle lobe pulmonary opacity with mild surrounding focal infiltrate; rec CT follow-up in 3 months. 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 Follow-up CT imaging after 3 months is recommended. There is primarily peripheral mild infiltrate or atelectasis of both lower lobes and lingula - started on CAP tx: ceftriaxone and doxycycline on 10/17 - sputum culture - denied N/V during period spent on floor - no supplemental O2 requirement - patient informed of CT findings and need for follow-up scan in 3 months, remind at discharge (3) Rhabdomyolysis: Qualifiers: Rhabdomyolysis type: non-traumatic Qualified Code(s): M62.82 - Rhabdomyolysis Code(s): M62.82 - Rhabdomyolysis Status: Acute Assessment and Plan: - CK 2163 - trend CK and renal function - IV fluids: 2L LR, continue as 100 mL/hr. CK down to 1200. Lowered IV fluid if adequate oral intake. IV fluids today. - monitor I&Os - suspect elevation due to prolonged down time on the floor after GLF (4) Diabetes type 2, controlled: Qualifiers: Diabetes mellitus long term care administrator insulin use: without long term care administrator use Diabetes mellitus complication status: without complication Qualified Code(s): E11.9 - Type 2 diabetes mellitus without complications Code(s): E11.9 - Type 2 diabetes mellitus without complications Status: Chronic Assessment and Plan: - hypoglycemia protocol - POC blood glucose ACHS - home medication: Continue glipizide - correct regimen ordered - low dose TIDWM and HS - A1C o8.6 (5) Hypertension: Qualifiers: Hypertension type: primary hypertension Qualified Code(s): I10 - Essential (primary) hypertension Code(s): I10 - Essential (primary) hypertension Status: Chronic Assessment and Plan: - chronic, currently 139/56 - continue home medications: Losartan 50 mg daily - monitor (6) Sleep apnea: Qualifiers:
[2023-10-21 16:35] LABS: Glucose Point of Care 159 mg/dl (65-105)
[2023-10-21 20:15] VITALS: BP 134/80; PULSE 89; RESP 20; TEMP 36.1; O2SAT 100
[2023-10-21 20:57] VITALS: O2SAT 98
[2023-10-21 21:42] LABS: Glucose Point of Care 206 mg/dl (65-105)
[2023-10-22 05:20] VITALS: BP 145/96; PULSE 86; RESP 18; TEMP 36.2; O2SAT 98
[2023-10-22 07:38] LABS: Glucose Point of Care 179 mg/dl (65-105)
[2023-10-22] MEDS: CEFDINIR 300 MG CAPSULE PO ×2 (08:36→20:53)
[2023-10-22] MEDS: SIMVASTATIN 20 MG TABLET 40 MG PO (08:36)
[2023-10-22] MEDS: DOXYCYCLINE HYCLATE 100 MG TABLET PO ×2 (08:36→20:53)
[2023-10-22] MEDS: LOSARTAN POTASSIUM 25 MG TABLET 50 MG PO (08:36)
[2023-10-22] MEDS: glipiZIDE 5 MG TABLET 10 MG PO ×2 (08:37→17:12)
[2023-10-22] MEDS: FOLIC ACID 1 MG TABLET PO (08:37)
[2023-10-22 11:33] LABS: Glucose Point of Care 235 mg/dl (65-105)
[2023-10-22] MEDS: INSULIN ASPART (*BKC) 100 UNITS/ML SUB-Q (11:44)
[2023-10-22 14:00] VITALS: BP 126/69; PULSE 88; RESP 18; TEMP 36.7; O2SAT 97
--- NOTE | 2023-10-22 14:24 | P.PNIM_ITS ---
Progress Note: A&P Assessment and Plan (1) Ground-level fall: Code(s): W18.30XA - Fall on same level, unspecified, initial encounter Status: Acute Assessment and Plan: - 1 fall in the last 3 months - fall precautions - trauma workup XR shoulder (R): no fracture or dislocation, chronic rotator cuff atrophy XR elbow (R): Posterior soft tissue swelling, prominent dorsal olecranon process spur, no fracture/dislocation/effusion XR elbow (L): Prominent dorsal olecranon process spur, no fracture/dislocation/effusion XR hip/pelvis: Bilateral hip osteoarthritis, no fracture, no dislocation CT head: Chronic findings, no fracture or acute intracranial bleed CT C-spine: Prominent cervical spondylosis, no fracture or dislocation CT chest/abd/pelvis: Cardiomegaly 8.7 x 13.5 mm lateral middle lobe pulmonary opacity with mild surrounding focal infiltrate; rec CT follow-up in 3 months. 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 Follow-up CT imaging after 3 months is recommended. There is primarily peripheral mild infiltrate or atelectasis of both lower lobes and lingula - started on CAP tx: ceftriaxone and doxycycline on 10/17 - sputum culture - denied N/V during period spent on floor - no supplemental O2 requirement - patient informed of CT findings and need for follow-up scan in 3 months, remind at discharge (3) Rhabdomyolysis: Qualifiers: Rhabdomyolysis type: non-traumatic Qualified Code(s): M62.82 - Rhabdomyolysis Code(s): M62.82 - Rhabdomyolysis Status: Acute Assessment and Plan: - CK 2163 - trend CK and renal function - IV fluids: 2L LR, continue as 100 mL/hr. CK down to 1200. Lowered IV fluid if adequate oral intake. IV fluids today. - monitor I&Os - suspect elevation due to prolonged down time on the floor after GLF (4) Diabetes type 2, controlled: Qualifiers: Diabetes mellitus superintendent container terminal insulin use: without superintendent container terminal use Diabetes mellitus complication status: without complication Qualified Code(s): E11.9 - Type 2 diabetes mellitus without complications Code(s): E11.9 - Type 2 diabetes mellitus without complications Status: Chronic Assessment and Plan: - hypoglycemia protocol - POC blood glucose ACHS - home medication: Continue glipizide - correct r
[2023-10-22 16:42] LABS: Glucose Point of Care 199 mg/dl (65-105)
[2023-10-22 20:00] VITALS: PULSE 77; RESP 16; O2SAT 98
[2023-10-22 20:01] LABS: Glucose Point of Care 234 mg/dl (65-105)
[2023-10-22] MEDS: MELATONIN 3 MG TABLET PO (20:53)
[2023-10-22 21:22] VITALS: BP 140/68; PULSE 89; RESP 16; TEMP 36.3; O2SAT 99
[2023-10-23 06:00] VITALS: BP 154/65; PULSE 77; RESP 16; TEMP 36.6; O2SAT 98
[2023-10-23] MEDS: FOLIC ACID 1 MG TABLET PO (09:33)
[2023-10-23] MEDS: DOXYCYCLINE HYCLATE 100 MG TABLET PO (09:34)
[2023-10-23] MEDS: SIMVASTATIN 20 MG TABLET 40 MG PO (09:34)
[2023-10-23] MEDS: glipiZIDE 5 MG TABLET 10 MG PO (09:34)
[2023-10-23] MEDS: CEFDINIR 300 MG CAPSULE PO (09:34)
[2023-10-23] MEDS: LOSARTAN POTASSIUM 25 MG TABLET 50 MG PO (09:34)
[2023-10-23 10:28] LABS: SARS-CoV-2 RNA PCR Negative (Negative)
--- NOTE | 2023-10-23 11:46 | PM.DS ---
DS: Admitting Diagnosis Discharge Date 10/23/23 Admitting Diagnosis Fall/PNA DS: Discharge Diagnosis Discharge Diagnosis (1) Ground-level fall: Code(s): W18.30XA - Fall on same level, unspecified, initial encounter Status: Acute Assessment and Plan: - 1 fall in the last 3 months - fall precautions - trauma workup XR shoulder (R): no fracture or dislocation, chronic rotator cuff atrophy XR elbow (R): Posterior soft tissue swelling, prominent dorsal olecranon process spur, no fracture/dislocation/effusion XR elbow (L): Prominent dorsal olecranon process spur, no fracture/dislocation/effusion XR hip/pelvis: Bilateral hip osteoarthritis, no fracture, no dislocation CT head: Chronic findings, no fracture or acute intracranial bleed CT C-spine: Prominent cervical spondylosis, no fracture or dislocation CT chest/abd/pelvis: Cardiomegaly 8.7 x 13.5 mm lateral middle lobe pulmonary opacity with mild surrounding focal infiltrate; rec CT follow-up in 3 months. 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 Follow-up CT imaging after 3 months is recommended. There is primarily peripheral mild infiltrate or atelectasis of both lower lobes and lingula - started on CAP tx: ceftriaxone and doxycycline on 10/17 - sputum culture - denied N/V during period spent on floor - no supplemental O2 requirement - patient informed of CT findings and need for follow-up scan in 3 months, remind at discharge (3) Rhabdomyolysis: Qualifiers: Rhabdomyolysis type: non-traumatic Qualified Code(s): M62.82 - Rhabdomyolysis Code(s): M62.82 - Rhabdomyolysis Status: Acute Assessment and Plan: - CK 2163 - trend CK and renal function - IV fluids: 2L LR, continue as 100 mL/hr. CK down to 1200. Lowered IV fluid if adequate oral intake. IV fluids today. - monitor I&Os - suspect elevation due to prolonged down time on the floor after GLF (4) Diabetes type 2, controlled: Qualifiers: Diabetes mellitus complication status: without complication Diabetes mellitus long haul truck driver insulin use: without long haul truck driver use Qualified Code(s): E11.9 - Type 2 diabetes mellitus without complications Code(s): E11.9 - Type 2 diabetes mellitus without complications Status: Chronic Assessment and Plan: - hypoglycemia protocol - POC blood glucose ACHS - home medication: Continue glipizide - correct regimen ordered - low dose TIDWM and HS - A1C o8.6 (5) Hypertension: Qualifiers: Hypertension type: primary hypertension Qualified Code(s): I10 - Essential (primary) hypertension Code(s): I10 - Essential (primary) hypertension Status: Chronic Assessment and Plan: - chronic, currently 139/56 - continue h
== END 2023-10-23 10:45 | DRG 557 ==
LOC: ANHED 14:27 → ANH3MEDSUR 14:50
PROVIDERS: Internal Medicine; Student in an Organized Health Care Education/Training Program; Admitting Provider Internal Medicine; Emergency Provider Student in an Organized Health Care Education/Training Program; PCP Family Medicine; Visit Provider Nurse Practitioner Family
DX: M62.82 Rhabdomyolysis (principal); J18.9 Pneumonia, unspecified organism; W01.198A Fall on same level from slipping, tripping and stumbling with subsequent striking against other object, initial encounter; G47.33 Obstructive sleep apnea (adult) (pediatric); I10 Essential (primary) hypertension; E11.9 Type 2 diabetes mellitus without complications; M06.9 Rheumatoid arthritis, unspecified; E78.5 Hyperlipidemia, unspecified; Z11.52 Encounter for screening for COVID-19; Z85.828 Personal history of other malignant neoplasm of skin
CPT/HCPCS: 36415; 70450; 71260; 72125; 72129; 72132; 73030; 73080; 73502; 74177; 80053; 81001; 82550; 82948; 83036; 83605; 83735; 84484; 85025; 85610; 85730; 86140; 87040; 87635; 90715; 93005; 96360; 96361; 97110; 97116; 97161; 97166; 97530; 97535; 99285; A9270; J0696; J1815; J7120; Q9967